=== PATIENT | female | born 1955 | race Caucasian/White ===

== ENCOUNTER → 2020-12-10 11:05 | Outpatient (CLI) | payer OTHER, SELFPAY ==
--- NOTE | 2020-12-10 11:43 | CA_ITS ---
APPROVED REPORT EXAM: Comprehensive 2D, Doppler, and color-flow Echocardiogram Software Engineering Analyst: Bharati Bronson, RT(R) Ht: 4 ft 11 in Wt: 200lbs BSA: 1.84 BP: 134/82 mmHg Indications: SOB, S/P covid 19, fatigue, palpitations 2D Dimensions LVOT 1.90 cm (M/F) 1.5-2.5 LVEF ([facility]ines[facility]) 68.10 % F: 54 - 74 LV Volume 102.60 mL F: 46 - 106 LV Volume Index 55.76 mL/m2 F: 29 - 61 M-Mode Dimensions RVDd 2.35 cm (0.9-2.6) LA Diam 3.73 cm (1.9-4.0) LVDd 3.84 cm (3.5-5.7) Ao Diam 2.48 cm (2.0-3.7) LVDs 2.35 cm (3.5-5.7) IVSd 0.71 cm (0.6-1.1) PWd 0.89 cm (0.6-1.1) EF (Teich) 69.90% FS 38.80% EDV (Teich) 63.50 mL ESV (Teich) 19.10 mL LV Diastology E Decel Time 193.00 (160-240 msec) E/A Ratio 1.3 MED E' 8.00 (< 7 cm/sec) E'/MED E' Ratio 10.68 (>14) LAT E' 12.10 (<10 cm/sec) E/LAT E' Ratio 7.06 (>14) Mitral Valve MV E Max Bang. 85.00 (40-130 cm/s) MV A Velocity 68.00 (40-130 cm/s) E/A Ratio 1.25 MV Decel. Time 193.00 (160-240 ms) MV PHT 57.00 ms Left Ventricle Left atrium is mildly enlarged, left ventricle is normal size, mild concentric left ventricular hypertrophy, visually estimated ejection fraction 55% with no regional wall motion abnormality, diastolic parameters are inconclusive. Right Ventricle Right atrium and right ventricle are normal size and contractility. Aortic Valve Aortic valve is thickened and calcified leaflet continue to display good mobility, there is no aortic stenosis, there is mild aortic insufficiency. Mitral Valve Mitral valve leaflets are minimally thickened, there is mild mitral regurgitation. Tricuspid Valve Tricuspid valve grossly normal, there is mild tricuspid regurgitation, tricuspid regurgitation jet velocity is inadequate for calculation of the right ventricular systolic pressure. Pulmonic Valve Pulmonic valve is poorly visualized. Great Vessels Aortic root is normal size. Pericardium No significant pericardial effusion noted. Conclusion 1. Mildly enlarged left atrium, normal left ventricular size, mild concentric left ventricular hypertrophy, visually estimated ejection fraction 55% with no regional wall motion abnormality, diastolic parameters are inconclusive. 2. Mild aortic, mild mitral and tricuspid regurgitation. 3. No significant pericardial effusion noted. Electronically signed by : Willy Ibarra, 12/10/2020 13:37:55
[2020-12-10 12:15] VITALS: PULSE 80; PULSE 84
== END ==
PROVIDERS: PCP Family Medicine; Visit Provider Family Medicine
DX: R06.09 Other forms of dyspnea (principal); R20.0 Anesthesia of skin; Z86.16 Personal history of COVID-19
CPT/HCPCS: 93306; 94060; 94640; 94726; 94729